=== PATIENT | male | born 1930 | race Caucasian/White ===

== ENCOUNTER 2021-06-29 17:02 | Inpatient (IN) | payer MEDICARE, OTHER ==
[~2021-06-29] VITALS: Ht 167.6 cm; Wt 77.6 kg
[2021-06-29] MEDS ORDERED: MECL-167 PO (17:10)
[2021-06-29] MEDS ORDERED: DONE10TA44 PO (17:10)
[2021-06-29] MEDS ORDERED: TICA90TA PO (17:10)
[2021-06-29] MEDS ORDERED: LIPA1CAP15 PO (17:10)
[2021-06-29] MEDS ORDERED: METO-357 PO (17:10)
[2021-06-29] MEDS ORDERED: NATE60TA4 PO (17:10)
[2021-06-29] MEDS ORDERED: LOSA25TA27 PO (17:10)
[2021-06-29] MEDS ORDERED: ATOR40TA PO (17:10)
[2021-06-29] MEDS ORDERED: MYRBETRIQ PO (17:10)
[2021-06-29] MEDS ORDERED: APIX2.5T PO (17:10)
[2021-06-29] MEDS ORDERED: FURO40TA5 PO (17:12)
[2021-06-29] MEDS ORDERED: LEVO100T9 PO (17:12)
[2021-06-29] MEDS ORDERED: FINA5TAB11 PO (17:12)
[2021-06-29] MEDS ORDERED: DOCU-141 PO (17:25)
[2021-06-29] MEDS ORDERED: ASPI-1169 PO (17:25)
[2021-06-29] MEDS ORDERED: INSU100V39 SQ (17:25)
[2021-06-29] MEDS ORDERED: ACET325T53 PO (17:25)
[2021-06-29] MEDS ORDERED: IV NS 0.9% 250 ML BAG IV ONE (17:30)
[2021-06-29] MEDS ORDERED: ACETAMINOPHEN ES 500 MG TABLET ONE (17:30)
[2021-06-29] MEDS ORDERED: ACETAMINOPHEN ES 500 MG TABLET PO ONE (17:30)
--- NOTE | 2021-06-29 17:55 | NUR ---
DESEAN FROM [facility] TO ER BED 7. ALERT, AWAKE BUT CONFUSED. NOT IN RESP DISTRESS. BROUGHT IN FOR FEVER, WEQAKNESS AND ABD PAIN. PT WAS REPORTED TO HAVE JUST BEEN DISCHARGED FROM THE [facility] YESTERDAY. WAS AT THE BEDSIDE FOR EVAL. ORDERS RECEIVED, NOTED AND CARRIED OUT. IV LINE ALREADY PRESENT UPON RECEIVING PT ON RFA 18G. BLOOD DRAWN AND GIVEN TO PHLEB. PT ON MONITOR
[2021-06-29 17:56] LABS: BASOPHILS % (AUTO) 0.2 % (0.0-2.0); EOSINOPHILS % (AUTO) 0.6 % (0.0-6.0); HEMATOCRIT 39 % (39-51); LYMPHOCYTES # (AUTO) 0.3 K/uL (0.8-4.8); LYMPHOCYTES % (AUTO) 3.3 % (20.0-44.0); MEAN CORPUSCULAR HGB CONC 33 g/dl (31.0-36.0); MEAN CORPUSCULAR VOLUME 95 fL (80-96); MONOCYTES # (AUTO) 0.1 K/uL (0.1-1.30); MONOCYTES % (AUTO) 1.2 % (2.0-12.0); NEUTROPHILS # (AUTO) 8.7 K/uL (1.8-8.9); NEUTROPHILS % (AUTO) 94.7 % (43.0-81.0); PLATELET COUNT (AUTO) 188 K/uL (150-450); RED BLOOD CELL COUNT(AUTO) 4.11 MIL/uL (4.5-6.0); WHITE BLOOD COUNT (AUTO) 9.2 K/uL (4.3-11.0)
[2021-06-29 18:04] LABS: CALCIUM, SERUM 8.5 mg/dL (8.5-10.1); CARBON DIOXIDE 23 mmol/L (21-32); CHLORIDE 105 mmol/L (98-107); CREATININE 1.7 mg/dL (0.6-1.3); GLUCOSE 186 mg/dL (74-106); POTASSIUM 3.8 mmol/L (3.5-5.1); SODIUM SERUM 141 mmol/L (136-145); UREA NITROGEN, BLOOD 21 mg/dL (7-18)
[2021-06-29 18:17] LABS: ALANINE AMINOTRANSFERASE 16 U/L (12-78); ALBUMIN 2.7 g/dL (3.4-5.0); ALKALINE PHOSPHATASE 109 U/L (46-116); ASPARTATE AMINOTRANSFERASE 23 U/L (15-37); BILIRUBIN,DIRECT 0.4 mg/dL (0.0-0.2); BILIRUBIN,TOTAL 1.5 mg/dL (0.2-1.0); TOTAL PROTEIN, SERUM 6.1 g/dL (6.4-8.2)
--- NOTE | 2021-06-29 18:25 | NUR ---
CALLED FOR BED.
[2021-06-29] MEDS ORDERED: VANCOMYCIN HCL 1 GM in IV D5W 260 ML IV ONE (18:30)
[2021-06-29] MEDS ORDERED: IV LR 1000 ML 1,000 ML IV ONE ×2 (18:30)
[2021-06-29] MEDS ORDERED: PIPERACILLIN /TAZOBACTAM 3.375 G in IV D5W 50 ML IV ONE (18:30)
[2021-06-29] MEDS ORDERED: IV LR 500 ML IV ONE (18:30)
[2021-06-29] MEDS ORDERED: PIPERACILLIN /TAZOBACTAM 3.375 G VIAL IV ONE (18:36)
[2021-06-29] MEDS ORDERED: VANCOMYCIN 1 GM VIAL ONE (18:36)
[2021-06-29 18:37] LABS: BILIRUBIN,URINE Negative (NEGATIVE); COLOR,URINE YELLOW (YELLOW); LEUKOCYTE ESTERASE ,URINE Small (NEGATIVE); NITRITE, URINE Negative (NEGATIVE); PROTEIN,URINE 100 mg/dl (NEGATIVE); UGLUCOSE Negative (NEGATIVE); UROBILINOGEN,URINE 0.2 EU/dL (0.2)
[2021-06-29 18:49] LABS: BACTERIA,URINE 2+ /HPF (None Seen); WBC,URINE 21-50 /HPF (0-3)
--- NOTE | 2021-06-29 18:58 | NUR ---
ORDERED 2.5L OF LR. ORDERED TO ONLY GIVE TOTAL OF 1000ML OF FLUIDS D/T PT HAVE CHF. PT RECEIVED 250ML OF NS. HE WILL BE RECEIVING 750ML OF LR TO PREVENT PT FROM GETTING FLUID OVERLOADED.
[2021-06-29] MEDS ORDERED: ACETAMINOPHEN 325 MG TABLET PO PRN (19:00)
[2021-06-29] MEDS ORDERED: ONDANSETRON HCL/PF 4 MG/2 ML VIAL IVP PRN (19:00)
[2021-06-29] MEDS ORDERED: Z GUARD REMEDY 2 OZ OINT TP PRN (19:00)
--- NOTE | 2021-06-29 19:28 | NUR ---
PT NOTED WITH BP OF 87/52. PT IS CURRENTLY SLEEPING. HE IS CURRENTLY RECEIVING 750ML OF LR. WILL REASSESS ONCE COMPLETED PER MD ORDERED.
--- NOTE | 2021-06-29 20:10 | NUR ---
750ML OF LR COMPLETED AND BP NOTED @ BP 105/62 / HR 70
[2021-06-29] MEDS ORDERED: HEPARIN SODIUM, PORCINE 5000 UNITS/1 ML VIAL SQ SCH (21:00)
--- NOTE | 2021-06-29 21:14 | NUR ---
REPORT GIVEN TO YOUSUF DAVIS FOR ANA
--- NOTE | 2021-06-29 21:26 | NUR ---
PT TRANSPORTED TO UNIT ON GURNEY WITH EMT AND RN AT BEDSIDE W/ ACLS PROTOCOL. NAD NOTED DURING TRANSPORT.
[2021-06-29] MEDS: DONEPEZIL 5 MG TABLET PO SCH (23:05)
[2021-06-29] MEDS: ATORVASTATIN 40 MG TABLET PO SCH (23:05)
[2021-06-29] MEDS: TICAGRELOR 90 MG TABLET PO SCH (23:08)
[2021-06-29] MEDS: APIXABAN 2.5 MG TABLET PO SCH (23:08)
[2021-06-29] MEDS: NATEGLINIDE 60 MG TABLET PO SCH (23:08)
[2021-06-29] MEDS: IV NS 0.9% 1,000 ML IV PRN (23:14)
[2021-06-30] VITALS (7 sets, daily range): BP systolic 81–118; BP diastolic 48–99
[2021-06-30] MEDS: ZOSYN IVPB 2.25 G in IV D5W 50ml IV SCH ×2 (02:25→09:27)
--- NOTE | 2021-06-30 04:26 | NUR ---
RN notes Admitted an 89 year old male from ER via stretcher accompanied by 2 staff in stable condition with diagnosis of sepsis secondary to UTI and chronic renal insufficiency. Vital signs wnl. No physical manifestation of pain or discomfort. Alert with confusion. Trinid[place] speaking but knows little dutch. On 2 llpm O2 via nasal cannula tolerating well. Kept clean and dry. Will continue to monitor.
[2021-06-30 07:20] LABS: BASOPHILS % (AUTO) 0.1 % (0.0-2.0); HEMATOCRIT 35 % (39-51); HEMOGLOBIN 11.6 g/dL (13.5-17.5); LYMPHOCYTES # (AUTO) 0.4 K/uL (0.8-4.8); LYMPHOCYTES % (AUTO) 2.5 % (20.0-44.0); MEAN CORPUSCULAR HGB CONC 34 g/dl (31.0-36.0); MEAN CORPUSCULAR VOLUME 96 fL (80-96); MONOCYTES % (AUTO) 5.9 % (2.0-12.0); NEUTROPHILS # (AUTO) 15.7 K/uL (1.8-8.9); NEUTROPHILS % (AUTO) 91.5 % (43.0-81.0); PLATELET COUNT (AUTO) 145 K/uL (150-450); RED BLOOD CELL COUNT(AUTO) 3.61 MIL/uL (4.5-6.0); WHITE BLOOD COUNT (AUTO) 17.2 K/uL (4.3-11.0)
--- NOTE | 2021-06-30 07:30 | NUR ---
TELE NURSE OPENING NOTE RECEIVE PATIENT FROM PM NURSE. A/O X4. ON NASAL CANULA ON 3L. SKIN INTACT. PATIENT ON MONITOR WITH SINUS RHYTHM. NO DISCOMFORT. HEP LOCK ON LFA WITH 18G. SITE CLEAN. CARE DISCUSSED, PATIENT VERBALIZED UNDERSTANDING. UNIVERSAL PRECAUTION OBSERVED. SAFETY MEASURE IN PLACE, BED LOW/LOCKED, HOB UP 30 DEGREE, SR UP X3, CALL LIGHT WITHIN REACH, WILL CONTINUE TO MONITOR.
[2021-06-30 07:34] LABS: CHOLESTEROL 89 mg/dL (<200); HDL CHOLESTEROL 38 mg/dL (40-60); LDL 48 mg/dL (0-99); TRIGLYCERIDES 74 mg/dL (30-150)
[2021-06-30 07:37] LABS: CALCIUM, SERUM 8.2 mg/dL (8.5-10.1); CARBON DIOXIDE 25 mmol/L (21-32); CHLORIDE 108 mmol/L (98-107); CREATININE 2.1 mg/dL (0.6-1.3); GLUCOSE 110 mg/dL (74-106); PHOSPHORUS 3.6 mg/dL (2.5-4.9); POTASSIUM 3.3 mmol/L (3.5-5.1); SODIUM SERUM 142 mmol/L (136-145); UREA NITROGEN, BLOOD 23 mg/dL (7-18)
[2021-06-30] MEDS: METOPROLOL SUCCINATE 50 MG TAB.SR.24H PO SCH (09:00)
[2021-06-30] MEDS: NATEGLINIDE 60 MG TABLET PO SCH ×3 (09:10→17:26)
[2021-06-30] MEDS: FINASTERIDE (5 MG) 5 MG TABLET PO SCH (09:10)
[2021-06-30] MEDS: DOCUSATE SODIUM 100 MG CAPSULE PO SCH (09:11)
[2021-06-30] MEDS: APIXABAN 2.5 MG TABLET PO SCH ×2 (09:12→21:44)
[2021-06-30] MEDS: TICAGRELOR 90 MG TABLET PO SCH ×2 (09:26→21:54)
[2021-06-30] MEDS ORDERED: Magnesium 1GM/D5W 100ML PREMIX 100 ML IV SCH (09:30)
[2021-06-30] MEDS ORDERED: POTASSIUM CHLORIDE 10 MEQ TABLET.SA PO ONE (09:30)
--- NOTE | 2021-06-30 09:30 | NUR ---
RN NOTES DUE MEDS GIVEN
[2021-06-30] MEDS: LIPASE/PROTEASE/AMYLASE 1 EACH CAPSULE.DR PO SCH ×3 (09:41→17:26)
[2021-06-30] MEDS: LEVOTHYROXINE SODIUM 100 MCG TABLET PO SCH (09:41)
[2021-06-30] MEDS ORDERED: DEXTROSE 50%-WATER 50 ML DISP.SYRIN IV PRN (10:00)
[2021-06-30] MEDS: MEROPENEM 500 MG in IV NS 0.9% 50 ML IV SCH ×2 (11:23→21:38)
[2021-06-30] MEDS: INSULIN REGULAR, HUMAN 100 UNIT/ML 3 ML VIAL SQ PRN (11:28)
[2021-06-30] MEDS: BLOOD SUGAR DIAGNOSTIC 1 EACH STRIP IN SCH ×3 (12:18→21:54)
--- NOTE | 2021-06-30 18:42 | NUR ---
TELE NURSE CLOSING NOTE. PATIENT BP BEEN LOW BUT REMAIN STABLE THROUGHOUT THE SHIFT. PATIENT SHOWS NO SIGN OF DISTRESS. NO DISCOMFORT. BED LOWEST POSITION WITH HOB UP 30 DEGREE. BED ALARM ON. SAFETY MEASURE PROVIDED. ISOLATION MEASURE. PROVIDE COMFORT MEASURE. PATIENT IS BED BOUND. AMBULATE WITH PT THIS MORNING. WILL CONTINUE TO MONITOR AND ENDORSE TO ON COMING NURSE.
--- NOTE | 2021-06-30 19:00 | NUR ---
RN NOTE RECEIVED PATIENT IN BED, AO X 4, ITALIAN SPEAKING, DAPHNIE NGUYEN ABLE TO HELP WITH TRANSLATION, IN NO S/SX OF ACUTE DISTRESS AT THIS TIME, BREATHING EVEN AND UNLABORED, SATURATION AT 98% ON 2L VIA NC, SR ON THE MONITOR, HR IS 71. NOTED IV SITE AT LFA 18G, PATENT AND FLUSHING WELL, NO S/S OF INFECTION OR INFILTRATION. PATIENT IS CONTINENT, URINAL AT BEDSIDE. SAFETY MEASURES IMPLEMENTED. PATIENT BED ALARM IS ON. HEAD OF BED ELEVATED. BED IS LOCKED, IN LOWEST POSITION AND SIDE RAILS UP. CALL LIGHT WITHIN REACH OF THE PATIENT. WILL CONTINUE TO MONITOR AND REASSESS FOR ANY CHANGES. Addendum: 07/01/21 at 0426 by ADRIANNA RYAN RN PT IS AAO X 2
[2021-06-30] MEDS: IV NS 0.9% 1,000 ML IV PRN (20:36)
[2021-06-30] MEDS: ATORVASTATIN 40 MG TABLET PO SCH (21:42)
[2021-06-30] MEDS: DONEPEZIL 5 MG TABLET PO SCH (21:42)
[2021-07-01] VITALS: BP 94/52
[2021-07-01 04:00] VITALS: BP 109/71
[2021-07-01] MEDS ORDERED: VANCOMYCIN 1.25 GM in IV D5W 250 ML IV SCH (06:00)
--- NOTE | 2021-07-01 07:06 | NUR ---
RN NOTE PT REMAINS IN ROOM, NO SIGN OF ACUTE DISTRESS NOTED, AWAITING VANCO TROUGH RESULT. ENDORSED TO AM SHIFT FOR ANA
[2021-07-01 07:21] LABS: BASOPHILS % (AUTO) 0.2 % (0.0-2.0); EOSINOPHILS % (AUTO) 2.2 % (0.0-6.0); HEMATOCRIT 35 % (39-51); HEMOGLOBIN 11.6 g/dL (13.5-17.5); LYMPHOCYTES % (AUTO) 8.8 % (20.0-44.0); MEAN CORPUSCULAR HGB CONC 33 g/dl (31.0-36.0); MEAN CORPUSCULAR VOLUME 97 fL (80-96); MONOCYTES # (AUTO) 0.7 K/uL (0.1-1.30); MONOCYTES % (AUTO) 6.2 % (2.0-12.0); NEUTROPHILS # (AUTO) 9.5 K/uL (1.8-8.9); NEUTROPHILS % (AUTO) 82.6 % (43.0-81.0); PLATELET COUNT (AUTO) 154 K/uL (150-450); RED BLOOD CELL COUNT(AUTO) 3.63 MIL/uL (4.5-6.0); WHITE BLOOD COUNT (AUTO) 11.5 K/uL (4.3-11.0)
[2021-07-01 07:31] LABS: CREATINE KINASE, TOTAL 66 U/L (39-308)
[2021-07-01 07:32] LABS: ALANINE AMINOTRANSFERASE 21 U/L (12-78); ALBUMIN 2.1 g/dL (3.4-5.0); ALKALINE PHOSPHATASE 84 U/L (46-116); ASPARTATE AMINOTRANSFERASE 31 U/L (15-37); CALCIUM, SERUM 8.1 mg/dL (8.5-10.1); CARBON DIOXIDE 29 mmol/L (21-32); CHLORIDE 110 mmol/L (98-107); CREATININE 2.1 mg/dL (0.6-1.3); GLUCOSE 104 mg/dL (74-106); MAGNESIUM 2.4 mg/dL (1.8-2.4); PHOSPHORUS 3.7 mg/dL (2.5-4.9); POTASSIUM 3.7 mmol/L (3.5-5.1); SODIUM SERUM 146 mmol/L (136-145); TOTAL PROTEIN, SERUM 5.4 g/dL (6.4-8.2); UREA NITROGEN, BLOOD 31 mg/dL (7-18)
--- NOTE | 2021-07-01 07:43 | NUR ---
RN OPENING NOTES; RECEIVED PT IN BED IN SUPINE POS. PT A/OX1, NO SOB NOTED, NO C/O PAIN AT THIS TIME. PT IS [place]OU[place] SPEAKING BUT CAN VERBALIZE NEEDS. PT SKIN INTACT. PT ON GTUBE FEEDING NEPRO 1.8 @60CC/HR. L AC NOTED, PATENTS WITH NO SIGNS OF INFILTRATION. SAFETY MEASURES RENDERED. BED IN LOWEST POSITION WITH BED LOCKED, CALL LIGHT WITHIN REACH. WILL CONTINUE TO MONITOR.
[2021-07-01 08:00] VITALS: BP 125/62
[2021-07-01] MEDS: LIPASE/PROTEASE/AMYLASE 1 EACH CAPSULE.DR PO SCH ×3 (08:00→17:03)
[2021-07-01] MEDS: BLOOD SUGAR DIAGNOSTIC 1 EACH STRIP IN SCH ×4 (08:03→22:02)
[2021-07-01] MEDS: INSULIN REGULAR, HUMAN 100 UNIT/ML 3 ML VIAL SQ PRN ×4 (08:04→22:10)
--- NOTE | 2021-07-01 08:04 | NUR ---
RN NOTES B/S TAKEN AT 96. NO INSULIN NEEDED PER SLIDING SCALE.
[2021-07-01] MEDS: LEVOTHYROXINE SODIUM 100 MCG TABLET PO SCH (08:27)
[2021-07-01] MEDS: DOCUSATE SODIUM 100 MG CAPSULE PO SCH (09:24)
[2021-07-01] MEDS: TICAGRELOR 90 MG TABLET PO SCH ×2 (09:24→21:39)
[2021-07-01] MEDS: APIXABAN 2.5 MG TABLET PO SCH ×2 (09:25→21:44)
[2021-07-01] MEDS: NATEGLINIDE 60 MG TABLET PO SCH ×3 (09:25→17:03)
[2021-07-01] MEDS: FINASTERIDE (5 MG) 5 MG TABLET PO SCH (09:25)
[2021-07-01] MEDS: METOPROLOL SUCCINATE 50 MG TAB.SR.24H PO SCH (09:25)
[2021-07-01] MEDS: MEROPENEM 500 MG in IV NS 0.9% 50 ML IV SCH ×2 (09:42→21:44)
[2021-07-01 12:00] VITALS: BP 102/64
[2021-07-01 16:00] VITALS: BP 116/66
--- NOTE | 2021-07-01 16:37 | NUR ---
RN NOTES; B/S TAKEN AT 125. NO INSULIN NEEDED PER SLIDING SCALE.
--- NOTE | 2021-07-01 17:04 | NUR ---
RN NOTES PT C/O 3/10 R LEG PAIN. PRN ACETAMINOPHEN 650MG GIVEN. WILL CONTINUE TO MONITOR.
--- NOTE | 2021-07-01 18:53 | NUR ---
RN CLOSING NOTES; PT IN BED SLEEPING. A/OX2. PT ON NC @2L WIHT 02 SAT AT 98%. PT KEPT CLEAN, DRY, COMFORTABLE WITH CALL LIGHT WITHIN REACH. ENDORSE TO AGENTS' RECORDS CLERK IN STABLE CONDITION.
[2021-07-01 20:00] VITALS: BP 123/69
[2021-07-01] MEDS: DONEPEZIL 5 MG TABLET PO SCH (21:40)
[2021-07-01] MEDS: ATORVASTATIN 40 MG TABLET PO SCH (21:40)
[2021-07-02] VITALS: BP 118/72
[2021-07-02 04:00] VITALS: BP 127/81
[2021-07-02] MEDS: IV NS 0.9% 1,000 ML IV PRN (05:56)
--- NOTE | 2021-07-02 06:51 | NUR ---
RN CLOSING NOTES; PATIENT IN BED, A/OX3 ON NC AT 2LPM WITH OPTIMAL O2 SAT LEVEL, NO SOB/ACUTE DISTRESS DURING THE NIGHT, WILL ENDORSE CONTINUITY OF CARE TO ONCOMING NURSE.
[2021-07-02 07:20] LABS: BASOPHILS % (AUTO) 0.4 % (0.0-2.0); EOSINOPHILS % (AUTO) 4.4 % (0.0-6.0); HEMATOCRIT 34 % (39-51); HEMOGLOBIN 11.8 g/dL (13.5-17.5); LYMPHOCYTES # (AUTO) 1.1 K/uL (0.8-4.8); MEAN CORPUSCULAR HGB CONC 34 g/dl (31.0-36.0); MEAN CORPUSCULAR VOLUME 96 fL (80-96); MONOCYTES # (AUTO) 0.7 K/uL (0.1-1.30); MONOCYTES % (AUTO) 7.3 % (2.0-12.0); NEUTROPHILS # (AUTO) 7.5 K/uL (1.8-8.9); NEUTROPHILS % (AUTO) 76.9 % (43.0-81.0); PLATELET COUNT (AUTO) 155 K/uL (150-450); RED BLOOD CELL COUNT(AUTO) 3.58 MIL/uL (4.5-6.0); WHITE BLOOD COUNT (AUTO) 9.8 K/uL (4.3-11.0)
[2021-07-02 07:39] LABS: CALCIUM, SERUM 8.5 mg/dL (8.5-10.1); CARBON DIOXIDE 26 mmol/L (21-32); CHLORIDE 111 mmol/L (98-107); CREATININE 1.6 mg/dL (0.6-1.3); GLUCOSE 126 mg/dL (74-106); MAGNESIUM 2.4 mg/dL (1.8-2.4); PHOSPHORUS 3.5 mg/dL (2.5-4.9); POTASSIUM 4.1 mmol/L (3.5-5.1); SODIUM SERUM 143 mmol/L (136-145); UREA NITROGEN, BLOOD 24 mg/dL (7-18)
--- NOTE | 2021-07-02 07:39 | NUR ---
RN OPENING NOTES; RECEIVED PT IN BED IN SUPINE POS. PT A/OX3, PT IS [place] SPEAKING. CAN MAKE HIS NEEDS KNOWN. NO SOB NOTED, NO C/O PAIN AT THIS TIME. PT SKIN INTACT. L AC NOTED, PATENTS WITH NO SIGNS OF INFILTRATION. SAFETY MEASURES RENDERED. BED IN LOWEST POSITION WITH BED LOCKED, CALL LIGHT WITHIN REACH. WILL CONTINUE TO MONITOR.
[2021-07-02] MEDS: BLOOD SUGAR DIAGNOSTIC 1 EACH STRIP IN SCH ×4 (07:58→22:10)
[2021-07-02] MEDS: INSULIN REGULAR, HUMAN 100 UNIT/ML 3 ML VIAL SQ PRN ×4 (07:59→22:10)
--- NOTE | 2021-07-02 07:59 | NUR ---
RN NOTES BS TAKEN AT 114. NO INSULIN NEEDED PER SLIDING SCALE.
[2021-07-02 08:00] VITALS: BP 137/80
[2021-07-02] MEDS: LIPASE/PROTEASE/AMYLASE 1 EACH CAPSULE.DR PO SCH ×3 (08:24→17:03)
[2021-07-02] MEDS: LEVOTHYROXINE SODIUM 100 MCG TABLET PO SCH (08:24)
[2021-07-02] MEDS: APIXABAN 2.5 MG TABLET PO SCH ×2 (08:25→21:50)
[2021-07-02] MEDS: TICAGRELOR 90 MG TABLET PO SCH ×2 (08:25→21:48)
[2021-07-02] MEDS: METOPROLOL SUCCINATE 50 MG TAB.SR.24H PO SCH (08:26)
[2021-07-02] MEDS: FINASTERIDE (5 MG) 5 MG TABLET PO SCH (08:26)
[2021-07-02] MEDS: DOCUSATE SODIUM 100 MG CAPSULE PO SCH (08:26)
[2021-07-02] MEDS: NATEGLINIDE 60 MG TABLET PO SCH ×3 (09:25→17:03)
[2021-07-02] MEDS: CEFTRIAXONE 2 G in IV D5W 100 ML IV SCH (09:27)
[2021-07-02 12:00] VITALS: BP 134/70
[2021-07-02 16:00] VITALS: BP 132/76
--- NOTE | 2021-07-02 16:37 | NUR ---
RN NOTES; BS TAKEN AT 97. NO INSULIN NEEDED PER SLIDING SCALE.
--- NOTE | 2021-07-02 18:24 | NUR ---
RN CLOSING NOTES; PT IN BED SLEEPING. A/OX2. PT IS SERBI[place] SPEAKING. PT ON NC @2L WIHT 02 SAT AT 99%. PT KEPT CLEAN, DRY, COMFORTABLE WITH CALL LIGHT WITHIN REACH. NO SIGNIFICANT CHANGE IN PT CONDITION. ENDORSE TO LAYAWAY CLERK IN STABLE CONDITION.
--- NOTE | 2021-07-02 19:45 | NUR ---
RN NOTE RECEIVED PT IN BED. ALERT. NOT IN ANY DISTRESS. ON O2 AT 2L. DENIES SOB OR PAIN. O2 SAT AT 95 % PT IV ON LFA PATENT AND INTACT, NS RUNNING AT 75ML/HR. VPACING ON TELE MONITOR. WILL CONTINUE TO MONITOR, ALL SAFETY IN PLACE.
[2021-07-02 20:00] VITALS: BP 139/89
[2021-07-02] MEDS: DONEPEZIL 5 MG TABLET PO SCH (21:48)
[2021-07-02] MEDS: ATORVASTATIN 40 MG TABLET PO SCH (21:49)
[2021-07-03] VITALS: BP 123/72
[2021-07-03] MEDS: IV NS 0.9% 1,000 ML IV PRN (00:52)
[2021-07-03 04:00] VITALS: BP 140/91
[2021-07-03 06:28] LABS: *SPE A/G RATIO 0.8 (0.7-1.7); *SPE ALPHA-1-GLOBULIN 0.3 g/dL (0.0-0.4); *SPE ALPHA-2-GLOBULIN 0.7 g/dL (0.4-1.0); *SPE BETA GLOBULIN 0.9 g/dL (0.7-1.3); *SPE M-SPIKE Not Observed g/dL (Not Observed)
[2021-07-03 06:56] LABS: BASOPHILS % (AUTO) 0.3 % (0.0-2.0); EOSINOPHILS % (AUTO) 2.9 % (0.0-6.0); HEMATOCRIT 35 % (39-51); HEMOGLOBIN 12.1 g/dL (13.5-17.5); LYMPHOCYTES # (AUTO) 0.9 K/uL (0.8-4.8); LYMPHOCYTES % (AUTO) 11.7 % (20.0-44.0); MEAN CORPUSCULAR HGB CONC 34 g/dl (31.0-36.0); MEAN CORPUSCULAR VOLUME 96 fL (80-96); MONOCYTES # (AUTO) 0.7 K/uL (0.1-1.30); MONOCYTES % (AUTO) 8.7 % (2.0-12.0); NEUTROPHILS # (AUTO) 5.9 K/uL (1.8-8.9); NEUTROPHILS % (AUTO) 76.4 % (43.0-81.0); PLATELET COUNT (AUTO) 159 K/uL (150-450); WHITE BLOOD COUNT (AUTO) 7.7 K/uL (4.3-11.0)
--- NOTE | 2021-07-03 06:56 | NUR ---
RN NOTE PT CONTINUE ON O2 THERAPY AT 2L. DENIES ANY SOB. NOT IN ANY DISTRESS. ABLE TO MAKE NEEDS KNOWN, SERBI[place] SPEAKING. CONTINUE ON IVF NS AT 75ML.HR.NO SIGNS OF INFILTRATION NOTED. REMAIN AFEBRILE. ALL SAFETY MEASURE MAINTAINED, WILL ENDORSE TO NEXT SHIFT NURSE.
[2021-07-03 07:00] LABS: CALCIUM, SERUM 8.5 mg/dL (8.5-10.1); CREATININE 1.3 mg/dL (0.6-1.3)
--- NOTE | 2021-07-03 07:27 | NUR ---
RN OPENING NOTES; RECEIVED PT IN BED IN SUPINE POS. PT A/OX3, NO SOB NOTED, NO C/O PAIN AT THIS TIME. PT IS [place] SPEAKING BUT CAN VERBALIZE NEEDS. PT SKIN INTACT. L AC NOTED, PATENTS WITH NO SIGNS OF INFILTRATION. CONTINUE ON ABT, TOLERATING WELL. SAFETY MEASURES RENDERED. BED IN LOWEST POSITION WITH BED LOCKED, CALL LIGHT WITHIN REACH. WILL CONTINUE TO MONITOR.
[2021-07-03] MEDS: BLOOD SUGAR DIAGNOSTIC 1 EACH STRIP IN SCH ×2 (07:44→11:32)
[2021-07-03] MEDS: INSULIN REGULAR, HUMAN 100 UNIT/ML 3 ML VIAL SQ PRN ×2 (07:44→11:35)
--- NOTE | 2021-07-03 07:45 | NUR ---
RN NOTES B/S TAKEN AT 115. NO INSULIN NEEDED PER SLIDING SCALE.
[2021-07-03 08:00] VITALS: BP 145/98
[2021-07-03] MEDS: TICAGRELOR 90 MG TABLET PO SCH (08:04)
[2021-07-03] MEDS: LEVOTHYROXINE SODIUM 100 MCG TABLET PO SCH (08:04)
[2021-07-03] MEDS: NATEGLINIDE 60 MG TABLET PO SCH ×2 (08:04→12:07)
[2021-07-03] MEDS: FINASTERIDE (5 MG) 5 MG TABLET PO SCH (08:04)
[2021-07-03] MEDS: CEFTRIAXONE 2 G in IV D5W 100 ML IV SCH (08:04)
[2021-07-03] MEDS: METOPROLOL SUCCINATE 50 MG TAB.SR.24H PO SCH (08:05)
[2021-07-03] MEDS: LIPASE/PROTEASE/AMYLASE 1 EACH CAPSULE.DR PO SCH ×2 (08:05→12:07)
[2021-07-03] MEDS: DOCUSATE SODIUM 100 MG CAPSULE PO SCH (08:05)
[2021-07-03] MEDS: APIXABAN 2.5 MG TABLET PO SCH (08:06)
[2021-07-03 12:00] VITALS: BP 145/98
--- NOTE | 2021-07-03 16:44 | NUR ---
RN DC NOTES; PT DC'S TO [facility] IN STABLE CONDITION. DC INSTRUCTIONS GIVEN AND EXPLAINED TO PT. VERBALIZED UNDERSTANDING. ALL PAPERWORK SIGNED AND COMPLETED. ALL BELONGINGS SENT. SKIN INTACT. REPORT CALLED TO SN[facility] AND GIVEN TO YOUSUF REYES. PT LEFT UNIT IN STABLE CONDITION VIA GURTAYE. ENDORSED TO AMBULANCE CREW ACCORDINGLY.
== END 2021-07-03 16:11 | DRG 871 ==
LOC: ER 17:09 → TELE1 20:05 → MEDSG1 07-03 08:14
PROVIDERS: ADMIT Nurse Practitioner Acute Care; ATTEND Nurse Practitioner Family
DX: A41.9 Sepsis, unspecified organism (principal); G93.41 Metabolic encephalopathy; N17.0 Acute kidney failure with tubular necrosis; E44.0 Moderate protein-calorie malnutrition; I13.0 Hypertensive heart and chronic kidney disease with heart failure and stage 1 through stage 4 chronic kidney disease, or unspecified chronic kidney disease; N39.0 Urinary tract infection, site not specified; E87.2 Acidosis; D62 Acute posthemorrhagic anemia; D64.9 Anemia, unspecified; E11.22 Type 2 diabetes mellitus with diabetic chronic kidney disease; Z20.822 Contact with and (suspected) exposure to COVID-19; I25.10 Atherosclerotic heart disease of native coronary artery without angina pectoris; I50.9 Heart failure, unspecified; F03.90 Unspecified dementia, unspecified severity, without behavioral disturbance, psychotic disturbance, mood disturbance, and anxiety; I70.0 Atherosclerosis of aorta; Z95.2 Presence of prosthetic heart valve; Z79.4 Long term (current) use of insulin; Z79.82 Long term (current) use of aspirin; Z79.899 Other long term (current) drug therapy; Z79.01 Long term (current) use of anticoagulants; N18.9 Chronic kidney disease, unspecified; N20.0 Calculus of kidney; E11.65 Type 2 diabetes mellitus with hyperglycemia; K57.30 Diverticulosis of large intestine without perforation or abscess without bleeding; Z90.49 Acquired absence of other specified parts of digestive tract; E03.9 Hypothyroidism, unspecified; M85.80 Other specified disorders of bone density and structure, unspecified site; E86.1 Hypovolemia; N13.9 Obstructive and reflux uropathy, unspecified; B96.20 Unspecified Escherichia coli [E. coli] as the cause of diseases classified elsewhere; I72.3 Aneurysm of iliac artery
CPT/HCPCS: 36415; 71045-TC; 80048-TC; 80053-TC; 80061-TC; 80076-TC; 80202-TC; 81001; 82550-TC; 82962-TC; 83605-TC; 83735-TC; 83880; 83970; 84100-TC; 84155; 84165; 84484-TC; 85025-TC; 85730-TC; 86803; 87040-TC; 87081-TC; 87086-TC; 87186-TC; 87806; 97112-TC; 97116-TC; 97530-TC; G0378; J0696; J1815; J2185; J2543; J3370; J3475; J7030; J7050; J7060; J7120; U0003